=== PATIENT | female | born 1945 | race Caucasian/White ===

== ENCOUNTER 2022-02-26 15:28 | Emergency (ER) | payer BC, OTHER ==
[2022-02-26] MEDS ORDERED: predniSONE 20 MG TABLET (UD) PO ONE (15:41)
[2022-02-26 15:43] VITALS: TEMP 98; BMI 23.8
[2022-02-26] MEDS: ALBUTEROL SO4 2.5/IPRATROPIUM 0.5 INH SOL 3 ML VIAL.NEB. NEB SCH ×2 (15:46→15:47)
[2022-02-26] MEDS ORDERED: ALBUTEROL SO4 2.5/IPRATROPIUM 0.5 INH SOL 3 ML VIAL.NEB. NEB ONE (15:48)
[2022-02-26] MEDS ORDERED: predniSONE 20 MG TABLET (UD) ONE (15:48)
[2022-02-26 16:21] VITALS: RESP 20
[2022-02-26 17:45] VITALS: BP 127/82; PULSE 79
== END 2022-02-26 17:45 | disposition home or self-care (01) ==
LOC: FER 15:28
PROC: 3E0F7GC Introduction of Other Therapeutic Substance into Respiratory Tract, Via Natural or Artificial Opening (ICD-10-PCS; principal; 2022-02-26)
DX: J20.9 Acute bronchitis, unspecified (principal); J18.9 Pneumonia, unspecified organism
CPT/HCPCS: 0241U-QW; 71045-TC-FY; 99284-25

== ENCOUNTER 2024-10-28 15:30 | Observation (INO) | payer BC ==
[2024-10-28 15:36] VITALS: RESP 18; BMI 27.8
[2024-10-28 16:36] LABS: ABSOLUTE IMMATURE GRANULOCYTES 0.10 x10^3/uL (0.0-0.031); BASOPHILS # 0.05 x10^3/uL (0.01-0.08); EOSINOPHIL % 2.3 % (0.7-5.8); EOSINOPHILS # 0.29 x10^3/uL (0.04-0.36); MCHC 31.3 g/dl (32.2-35.5); MEAN CELL VOLUME 88.7 fl (79.4-94.8); MEAN PLT VOLUME 8.0 fl (9.4-12.3); MONOCYTE # 1.17 x10^3/uL (0.24-0.86); MONOCYTE % 9.3 % (4.7-12.5); RDW 13.7 % (12.4-16.6)
[2024-10-28 16:44] LABS: INR 1.18 (0.83-1.09); PROTHROMBIN TIME (PATIENT) 13.1 SEC (9.7-13.0)
[2024-10-28 16:47] LABS: ACTIVATED PTT 29.1 SECONDS (25.2-36.5)
[2024-10-28 16:57] LABS: ALK PHOS 46.0 U/L (45-117); CO2 23.0 mmol/L (21-32); CREATININE 1.6 mg/dl (0.6-1.3); GLUCOSE,RANDOM 117.0 mg/dl (74-106); SGOT/AST 7.0 U/L (15-37); SGPT/ALT 5.0 U/L (7-52); TOT PROT 6.6 g/dl (6.4-8.2)
[2024-10-28 17:38] LABS: N-TERMINAL BNP 617.1 pg/ml (5-450)
[2024-10-28] MEDS: SODIUM CHLORIDE 0.9% 500 ML INFUS.BAG IV ONE (17:45)
[2024-10-28 21:42] LABS: HCV DIAGNOSTIC IN-HOUSE W/RFLX NON-REACTIVE (NONREACTIVE)
[2024-10-28] MEDS ORDERED: DOCUSATE SODIUM 100 MG CAPSULE (FP) PO PRN (21:59)
[2024-10-28] MEDS ORDERED: ACETAMINOPHEN 500 MG TABLET (FP) PO PRN (22:07)
[2024-10-28 22:27] LABS: HIV INTERPRETATION NEGATIVE (NEGATIVE)
[2024-10-29] MEDS ORDERED: MELATONIN 5 MG TABLETS PO PRN (02:51)
[2024-10-29] MEDS ORDERED: ACETAMINOPHEN 500 MG TABLET (FP) PO PRN (07:19)
[2024-10-29 07:43] LABS: ABSOLUTE IMMATURE GRANULOCYTES 0.07 x10^3/uL (0.0-0.031); BASOPHILS # 0.04 x10^3/uL (0.01-0.08); EOSINOPHIL % 3.2 % (0.7-5.8); EOSINOPHILS # 0.35 x10^3/uL (0.04-0.36); MCHC 30.9 g/dl (32.2-35.5); MEAN CELL VOLUME 89.0 fl (79.4-94.8); MEAN PLT VOLUME 8.2 fl (9.4-12.3); MONOCYTE # 1.51 x10^3/uL (0.24-0.86); MONOCYTE % 13.6 % (4.7-12.5); RDW 13.7 % (12.4-16.6)
[2024-10-29 08:01] LABS: CO2 23.0 mmol/L (21-32); CREATININE 1.5 mg/dl (0.6-1.3); GLUCOSE,RANDOM 131.0 mg/dl (74-106)
[2024-10-29] MEDS: FLUTICASONE/UMECLIDIN/VILANTER(100-62.5-25 TRELEGY ELLIPTA) INAHLER IH SCH (13:43)
[2024-10-29] MEDS: SODIUM CHLORIDE 1,000 ML IV SCH (13:43)
[2024-10-29 14:03] VITALS: BP 98/64; PULSE 94; TEMP 98.4
== END 2024-10-29 18:41 | disposition home or self-care (01) ==
LOC: FER 15:30 → FM/S 17:51 → UNDOADMOB 17:51 → FM/S 20:10
PROVIDERS: ADMIT Internal Medicine; ATTEND Internal Medicine
DX: I87.2 Venous insufficiency (chronic) (peripheral) (principal); N17.9 Acute kidney failure, unspecified; R00.0 Tachycardia, unspecified; E86.1 Hypovolemia; I10 Essential (primary) hypertension; J44.9 Chronic obstructive pulmonary disease, unspecified; D64.9 Anemia, unspecified; C34.91 Malignant neoplasm of unspecified part of right bronchus or lung; Z90.2 Acquired absence of lung [part of]; Z87.891 Personal history of nicotine dependence
CPT/HCPCS: 36415; 71045-TC-FY; 80048; 80053; 82550; 83735; 83880; 84100; 84484; 85025; 85379; 85610; 85730; 86803; 86850; 86900; 86901; 87389; 93005; 93306-TC; 93970-TC; 97116-GP; 97161-GP; 99285-25; G0378

== ENCOUNTER 2024-11-05 17:34 | Observation (INO) | payer BC ==
[2024-11-05 18:21] LABS: MCHC 30.9 g/dl (32.2-35.5); MEAN CELL VOLUME 88.7 fl (79.4-94.8); MEAN PLT VOLUME 8.8 fl (9.4-12.3); RDW 13.9 % (12.4-16.6)
[2024-11-05 18:33] LABS: INR 1.27 (0.83-1.09); PROTHROMBIN TIME (PATIENT) 14.1 SEC (9.7-13.0)
[2024-11-05 18:35] LABS: ALK PHOS 56.0 U/L (45-117); CO2 25.0 mmol/L (21-32); CREATININE 1.2 mg/dl (0.6-1.3); GLUCOSE,RANDOM 112.0 mg/dl (74-106); SGOT/AST 12.0 U/L (15-37); SGPT/ALT 8.0 U/L (7-52); TOT PROT 6.3 g/dl (6.4-8.2)
[2024-11-05] MEDS: CEFTRIAXONE 1,000 MG in DEXTROSE 5%-WATER - 50 ML IVPB ONE (21:59)
[2024-11-05] MEDS: PIPERACILLIN/TAZOB 3.375 GM 3.375 GM in DEXTROSE 5%-WATER - 50 ML IVPB ONE (23:37)
[2024-11-06 00:32] VITALS: BMI 28.0
[2024-11-06] MEDS: VANCOMYCIN 1,000 MG in DEXTROSE 5%-WATER - 250 ML IVPB ONE (00:39)
[2024-11-06] MEDS: ENOXAPARIN NA (PORCINE) 40 MG/0.4 ML DISP.SYRIN SQ SCH (09:57)
[2024-11-06] MEDS: FLUTICASONE/UMECLIDIN/VILANTER(100-62.5-25 TRELEGY ELLIPTA) INAHLER IH SCH (09:57)
[2024-11-06] MEDS: CEFTRIAXONE 1 GM in DEXTROSE 5%-WATER - 50 ML IVPB SCH (10:52)
[2024-11-06 18:01] LABS: MCHC 30.9 g/dl (32.2-35.5); MEAN CELL VOLUME 87.5 fl (79.4-94.8); MEAN PLT VOLUME 8.1 fl (9.4-12.3); RDW 13.9 % (12.4-16.6)
[2024-11-06 18:12] LABS: ALK PHOS 47.0 U/L (45-117); CO2 25.0 mmol/L (21-32); CREATININE 1.1 mg/dl (0.6-1.3); GLUCOSE,RANDOM 128.0 mg/dl (74-106); SGOT/AST 10.0 U/L (15-37); SGPT/ALT 8.0 U/L (7-52); TOT PROT 5.4 g/dl (6.4-8.2)
[2024-11-06 20:19] LABS: IRON SERUM 17.0 ug/dL (50-175)
[2024-11-07] MEDS: ACETAMINOPHEN 325 MG TABLET (FP) PO PRN (00:02)
[2024-11-07 08:16] LABS: ABSOLUTE IMMATURE GRANULOCYTES 0.06 x10^3/uL (0.0-0.031); BASOPHILS # 0.03 x10^3/uL (0.01-0.08); EOSINOPHIL % 1.3 % (0.7-5.8); EOSINOPHILS # 0.15 x10^3/uL (0.04-0.36); MCHC 31.6 g/dl (32.2-35.5); MEAN CELL VOLUME 87.7 fl (79.4-94.8); MEAN PLT VOLUME 8.3 fl (9.4-12.3); MONOCYTE # 1.35 x10^3/uL (0.24-0.86); MONOCYTE % 11.5 % (4.7-12.5); RDW 14.0 % (12.4-16.6)
[2024-11-07 08:45] LABS: CO2 25.0 mmol/L (21-32); CREATININE 0.9 mg/dl (0.6-1.3); GLUCOSE,RANDOM 92.0 mg/dl (74-106)
[2024-11-07] MEDS: MAGNESIUM OXIDE 400 MG TABLET (FP) PO ONE (09:40)
[2024-11-07] MEDS: POTASSIUM CHLORIDE TABS 20 MEQ TABLET.ER (FP) PO ONE (09:41)
[2024-11-08 03:37] VITALS: RESP 18
[2024-11-08 09:02] LABS: ALK PHOS 44.0 U/L (45-117); CO2 25.0 mmol/L (21-32); CREATININE 0.8 mg/dl (0.6-1.3); GLUCOSE,RANDOM 90.0 mg/dl (74-106); SGOT/AST 10.0 U/L (15-37); SGPT/ALT 7.0 U/L (7-52); TOT PROT 5.0 g/dl (6.4-8.2)
[2024-11-08 09:10] LABS: MCHC 30.9 g/dl (32.2-35.5); MEAN CELL VOLUME 88.3 fl (79.4-94.8); MEAN PLT VOLUME 8.3 fl (9.4-12.3); RDW 14.0 % (12.4-16.6)
[2024-11-08] MEDS: LOPERAMIDE HCL 2 MG CAPSULE PO ONE (09:27)
[2024-11-08] MEDS: ESCITALOPRAM OXALATE 10 MG TABLET PO SCH (09:28)
[2024-11-08 10:15] VITALS: BP 108/57; PULSE 98; TEMP 98.4
== END 2024-11-08 11:10 | disposition home or self-care (01) ==
LOC: FER 17:34 → UNDOADMOB 21:24 → INTOOBSV 21:24 → FM/S 21:24 → UNDOADMIN 22:57 → FM/S 11-06 09:09
PROVIDERS: ATTEND Student in an Organized Health Care Education/Training Program
DX: R00.0 Tachycardia, unspecified (principal); N39.0 Urinary tract infection, site not specified; C34.81 Malignant neoplasm of overlapping sites of right bronchus and lung; R91.8 Other nonspecific abnormal finding of lung field; I87.2 Venous insufficiency (chronic) (peripheral); J44.9 Chronic obstructive pulmonary disease, unspecified; I10 Essential (primary) hypertension; D50.9 Iron deficiency anemia, unspecified; Z90.2 Acquired absence of lung [part of]; Z87.891 Personal history of nicotine dependence
CPT/HCPCS: 36415; 71045-TC-FY; 71275-TC; 80048; 80053; 81003; 81015; 82728; 83540; 83550; 83605; 83735; 84100; 84443; 84484; 85025; 85027; 85379; 85610; 87040; 87086; 87637-QW; 93005; 96365; 96367; 96372; 99285-25; G0378; Q9967